=== PATIENT | male | born 1990 | race African-American/Black ===

== ENCOUNTER 2016-12-27 20:27 | Emergency (ER) | payer OTHER ==
--- NOTE | ~2016-12-27 | CR170 ---
[facility] A Service of [facility] & [facility] RADIOLOGY TEXT RESULTS PATIENT: ANIKA SIMEON LOCATION: [facility] : [birth year] UNIT #: [id number] AGE: [address]: Татьяна Muñiz SEX: M ORDER DR: [id number] [facility] [address] [place], [place] [address] [id number] E MR#: [id number] Acc #: [id number] NAME: ANIKA SIMEON : 1990 SEX: M STUDY DATE/TIME: 12/27/2016 20:12 UNIT: [facility] ROOM: STUDY DESCRIPTION: CR Knee 2 Views Rt Attending Physician: Татьяна Muñiz Pa-C Ordering Physician: Anika Gardner M.D. Primary Care Physician: Jim Alcaraz M.D. MEDICAL IMAGING REPORT This report is preliminary unless electronic signature is present EXAM Right knee, 2 views. DATE OF EXAM 12/27/2016 HISTORY Right knee pain and swelling for 1 week with no known injury. FINDINGS 2 views of the right knee demonstrate no fracture. Intramedullary papa traverses an old healed fracture of the distal femur. The bones are normally mineralized. There is a moderate sized joint effusion. IMPRESSION 1. Moderate sized joint effusion. 2. Intramedullary papa traverses old healed fracture of the distal femur. No acute fracture is seen. Dictated by... Alfredo Finn M.D. THIS IS AN ELECTRONICALLY VERIFIED REPORT Alfredo Finn M.D. at 12/28/2016 3:31 PM ALEXANDR/spencer TD: 12/28/2016 15:07 JOB #: [id number] MEDICAL IMAGING REPORT COPY
[~2016-12-27 20:27] MED LIST: ALBUTEROL17 GM INH; PREDNISONE PO
[2016-12-28] MEDS ORDERED: NO MEDICATIONS (02:00)
== END 2016-12-27 21:13 | disposition home or self-care (01) ==
LOC: CED 20:27
DX: M25.461 Effusion, right knee (principal); J45.909 Unspecified asthma, uncomplicated; Z98.890 Other specified postprocedural states
CPT/HCPCS: 29530; 73560; 99283

== ENCOUNTER 2016-12-28 02:41 | Emergency (ER) | payer OTHER ==
[~2016-12-28 02:41] MED LIST changes: +NO MEDICATIONS
== END 2016-12-28 03:08 | disposition home or self-care (01) ==
LOC: SED 02:41
DX: M25.461 Effusion, right knee (principal); J45.909 Unspecified asthma, uncomplicated; Z98.890 Other specified postprocedural states; Z88.8 Allergy status to other drugs, medicaments and biological substances
CPT/HCPCS: 99283

== ENCOUNTER 2017-07-09 10:30 | Emergency (ER) | payer OTHER ==
[~2017-07-09] VITALS: Ht 180.3 cm; Wt 72.6 kg
[2017-07-09 11:58] LABS: URINE SOURCE CLEAN CATCH
[2017-07-09 12:02] LABS: URINE APPEARANCE CLOUDY; URINE BILIRUBIN NEG (NEG); URINE BLOOD NEG (NEG); URINE COLOR YELLOW; URINE GLUCOSE NEG (NEG); URINE KETONE NEG (NEG); URINE LEUKOCYTE ESTERASE TRACE (NEG); URINE NITRATE NEG (NEG); URINE PROTEIN TRACE (NEG); URINE SPECIFIC GRAVITY 1.024 (1.003-1.035)
[2017-07-09 12:04] LABS: URBCS1 AUWI 0-2 /[HPF] (0-2); URINE BACTERIA AUWI NEG (NEGATIVE); URINE SQUAMOUS EPITHELIAL CELL OCC /[HPF]
[2017-07-09 12:10] LABS: CULTURE INDICATED? NO
[2017-07-09 12:11] LABS: URINE MUCUS PRESENT
[2017-07-12 20:50] LABS: CHLAMYDIA TRACH Detected (Not Detected); N GONOR Not Detected (Not Detected)
== END 2017-07-09 12:21 | disposition home or self-care (01) ==
LOC: CFTX 10:30 → CED 10:30 → CFTX 11:54
PROVIDERS: Nurse Practitioner
DX: L02.416 Cutaneous abscess of left lower limb (principal); R30.0 Dysuria; J45.909 Unspecified asthma, uncomplicated; Z88.6 Allergy status to analgesic agent; Z88.8 Allergy status to other drugs, medicaments and biological substances; F17.210 Nicotine dependence, cigarettes, uncomplicated
CPT/HCPCS: 10060; 81003; 87491; 87591; 99283